=== PATIENT | female | born 1945 | race Caucasian/White ===

== ENCOUNTER 2017-05-15 10:43 | Outpatient (CLI) | payer BC, MEDICARE, OTHER ==
--- NOTE | 2017-05-17 10:10 | XRAY Report ---
LEG LENGTH STUDY: 05/16/2017 CLINICAL INDICATION: Leg length discrepancy, sciatica. FINDINGS: The right leg, measuring from acetabular roof to medial tibial plateau, measures 42.5 cm, and the left leg measures 42.6 cm. The right lower leg, from the medial tibial plateau to the ankle m ortise, measures 36.0 cm, while the left measures 34.4 cm. IMPRESSION: AN 1.5 CM LEG LENGTH DISCREPANCY, PREDOMINANTLY BELOW THE KNEE ON THE LEFT, LEFT SHORTER THAN RIGHT. JOB #: [id number] EXT JOB #:[id number]
== END 2017-05-15 10:44 | disposition home or self-care (01) ==
LOC: DI 10:43
PROVIDERS: ATTEND Podiatrist
DX: M21.70 Unequal limb length (acquired), unspecified site (principal); M54.30 Sciatica, unspecified side
CPT/HCPCS: 77073

== ENCOUNTER 2019-01-28 10:58 | Outpatient (CLI) | payer MEDICARE, OTHER ==
--- NOTE | 2019-01-28 15:13 | XRAY Report ---
Reason: DJD-HIP Procedure Date: 01/28/2019 Accession Number: [id number] / [id number] Procedure: XR - Hip w/Pelvis 2-3V RT CPT Code: FULL RESULT: EXAM: RIGHT HIP RADIOGRAPHY EXAM DATE: 01/28/2019 11:19 AM. CLINICAL HISTORY: Hip pain. COMPARISON: None. TECHNIQUE: 2 views. FINDINGS: Bones: There are operative changes after right total hip arthroplasty. Components appear anatomically aligned. There is no evidence of periprosthetic fracture or delayed complication. No acute fractures elsewhere. Joints: [place] left hip is normally located. SI joints are within expected limits. Soft Tissues: Normal. No soft tissue swelling. Pessary device is in place. IMPRESSION: Right total hip arthroplasty component appears anatomically aligned without evidence of delayed complication. RADIA
== END 2019-01-28 10:59 | disposition home or self-care (01) ==
LOC: DI 10:58
PROVIDERS: ATTEND Physician Assistant Medical
DX: M16.10 Unilateral primary osteoarthritis, unspecified hip (principal); Z96.641 Presence of right artificial hip joint

== ENCOUNTER 2019-02-24 08:00 | Outpatient (CLI) | payer MEDICARE, OTHER ==
[2019-02-24 17:07] LABS: CALCIUM 10.2 mg/dL (8.5-10.3); CREATININE 1.3 mg/dL (0.4-1.0)
== END 2019-02-24 23:59 | disposition home or self-care (01) ==
LOC: LAB 08:00
PROVIDERS: ATTEND Physician Assistant
DX: M54.30 Sciatica, unspecified side (principal); K21.9 Gastro-esophageal reflux disease without esophagitis
CPT/HCPCS: 36415; 80048

== ENCOUNTER 2019-02-26 14:26 | Outpatient (CLI) | payer MEDICARE, OTHER ==
--- NOTE | 2019-02-26 16:33 | CT Report ---
Reason: SCIATICA Procedure Date: 02/26/2019 Accession Number: [id number] / [id number] Procedure: CT - LUMBAR SPINE WO CPT Code: FULL RESULT: EXAM: CT LUMBAR SPINE WITHOUT CONTRAST. EXAM DATE: 02/26/2019 03:10 PM. CLINICAL HISTORY: Sciatica. COMPARISONS: MRI lumbar spine 09/16/2014. TECHNIQUE: Thin-section axial images were acquired of the lumbar spine from T12 to S1 without contrast. Post-processing: Coronal and sagittal reformats. Other: None. In accordance with CT protocol optimization, one or more of the following dose reduction techniques were utilized for this exam: automated exposure control, adjustment of mA and/or KV based on patient size, or use of iterative reconstructive technique. FINDINGS: Alignment: Mild S-shaped scoliosis with 24 degrees convex right component centered at L2-L3 and 17 degrees convex left component at L4-L5, minimally progressed. 4 mm retrolisthesis at L2 on L3, accentuated by osteophytes. 3 mm retrolisthesis at L3 on L4. 5 mm anterolisthesis at L5 on S1. Bones: Five [id number] lumbar vertebral bodies are present. No gross fracture. Hemangioma in the posterior aspect of L1. Endplate sclerosis at multiple levels, asymmetric to the left at L2-L3 and L3-L4 and asymmetric to the right at L4-L5 and L5-S1. No lucency adjacent to the posterior fusion hardware at L4-L5. Intervertebral fusion device at this level. No gross osseous fusion across the disk space. Disk Levels/Facets: Limited evaluation of the soft tissues of the central canal on CT. T11-T12: Partially visualized. Small disk osteophyte complex, asymmetric to the left. Mild facet hypertrophy. No gross central canal stenosis. T12-L1: Minimal disk osteophyte complex, asymmetric to the left. Minimal left neural foramen stenosis. This is similar. L1-L2: Minimal disk osteophyte complex. Mild right and mild to moderate left facet hypertrophy. Minimal central canal stenosis. Mild left neural foramen stenosis. This is similar. L2-L3: Moderate broad-based disk osteophyte complex, extending into the left foramen and far lateral region. Mild facet hypertrophy. Mild central canal stenosis. Mild right and moderate to severe left neural foramen stenosis. This is similar. L3-L4: Small to moderate disk osteophyte complex, asymmetric to the left. Mild right and moderate facet and ligamentum flavum hypertrophy. Mild central canal stenosis. Moderate right and moderate to severe left neural foramen stenosis. This is similar. L4-L5: Small disk osteophyte complex with right foraminal and far lateral component. Moderate right and mild left facet and ligamentum flavum hypertrophy. Mild central canal stenosis. Moderate to severe right and mild left neural foramen stenosis. This is similar. L5-S1: Anterior diskectomy and fusion. Small to moderate residual posterior osteophytes, asymmetric to the right, with extension into the region of the right lateral recess. Right laminectomy and partial facetectomy. Minimal central canal stenosis. Moderate to severe right neural foramen stenosis, slightly decreased. Mild left neural foramen stenosis, similar. Musculature: Mild fatty atrophy posterior paraspinous musculature. Other: Small hiatal hernia. High attenuation ingested materials noted in the stomach. Mild degenerative changes at the sacroiliac joints. IMPRESSION: 1. Intervertebral disk device and posterior fusion hardware at L5-S1 without evidence of complication. 2. Minimal residual central canal stenosis at L5-S1. Residual posterior osteophytes extending to the region of the right lateral recess. Moderate to severe right neural foramen stenosis, slightly decreased. 3. Moderate to severe degenerative disk and mild to moderate degenerative facet changes at remaining levels not significantly changed compared to 2014 given differences in technique. 4. Mild central canal stenosis at L2-L3, L3-L4, and L4-L5. 5. Moderate to severe neural foramen stenosis at L2-L3 on the left and L3-L4 on the left. Moderate stenosis at L3-L4 on the right. 6. Mild to moderate S-shaped scoliosis, minimally progressed. RADIA
--- NOTE | 2019-02-26 16:41 | CT Report ---
Reason: S/P HIP REPLACEMENT, NOW WITH PAIN IN HIP AND LEG. NORMAL XR. Procedure Date: 02/26/2019 Accession Number: [id number] / [id number] Procedure: CT - LOWER EXTREMITY WO - RT CPT Code: FULL RESULT: EXAM: RIGHT HIP CT WITHOUT CONTRAST EXAM DATE: 02/26/2019 03:10 PM. CLINICAL HISTORY: Status post hip replacement. Pain in hip and leg. Sciatica. COMPARISON: Radiographs 01/28/2019. TECHNIQUE: Thin-section axial images were acquired of the hip without contrast. Post-processing: Coronal and sagittal reformats. Other: None. In accordance with CT protocol optimization, one or more of the following dose reduction techniques were utilized for this exam: automated exposure control, adjustment of mA and/or KV based on patient size, or use of iterative reconstructive technique. FINDINGS: Bones: Streak artifact from right hip prosthesis moderately limits evaluation of that region. Cystic changes at the anterior superior aspect right acetabulum, likely due to underlying degenerative changes. Subtle lucency adjacent to the femoral stem measuring up to 2 mm at the proximal and lateral aspect and 1.5 mm circumferentially at the mid to distal aspect. No discrete displaced fracture visualized. Evaluation for nondisplaced fracture limited on CT. Posterior fusion hardware partially visualized at L5-S1. Please see dedicated CT lumbar spine performed on the same day for further details. Joints: Anatomic alignment of right hip prosthesis. Femoral component is symmetrically located within the acetabular component. No large joint effusion visualized. Mild degenerative changes at the sacroiliac joints and left hip. No appreciable effusion at the left hip. Musculature: Mild fatty atrophy posterior paraspinous musculature. Limited evaluation for muscle edema on CT. Other: Multiple sigmoid diverticula. No gross free fluid. Pessary device noted. IMPRESSION: 1. No evidence of acute osseous normality. 2. Anatomic alignment right hip prosthesis. 3. Subtle lucency adjacent to the femoral component right hip prosthesis, most prominent proximally and laterally. This may be postsurgical. Early loosening not excluded. 4. Degenerative changes in the remainder of the bony pelvis. 5. Degenerative changes and postsurgical changes partially visualized lower lumbar spine. RADIA
== END 2019-02-26 14:27 | disposition home or self-care (01) ==
LOC: DI 14:26
PROVIDERS: ATTEND Family Medicine
DX: M47.9 Spondylosis, unspecified (principal); M51.36 Other intervertebral disc degeneration, lumbar region; M48.061 Spinal stenosis, lumbar region without neurogenic claudication; Z98.1 Arthrodesis status; M41.86 Other forms of scoliosis, lumbar region; M43.16 Spondylolisthesis, lumbar region; M51.34 Other intervertebral disc degeneration, thoracic region; M16.12 Unilateral primary osteoarthritis, left hip; M47.898 Other spondylosis, sacral and sacrococcygeal region; Z96.641 Presence of right artificial hip joint
CPT/HCPCS: 72131

== ENCOUNTER 2019-09-03 11:37 | Outpatient (CLI) | payer MEDICARE, OTHER ==
--- NOTE | 2019-09-04 07:24 | Ultrasound Report ---
Reason: DYSPHAGIA Procedure Date: 09/03/2019 Accession Number: [id number] / [id number] Procedure: US - Head or Neck Soft Tissue CPT Code: Final Report FULL RESULT: EXAM: THYROID ULTRASOUND EXAM DATE: 09/03/2019 11:30 AM. CLINICAL HISTORY: DYSPHAGIA. COMPARISON: None. TECHNIQUE: Real time sonographic imaging of the thyroid was performed by the vacuum drum drier operator. Multiple sales representative aircraft static images were saved for review. FINDINGS: THYROID GLAND: Right Lobe: 4.3 x 1.3 x 1.7 cm, volume 4.9 cc. Normal background echotexture. Right Lobe Nodules: 1. Upper pole 1 x 0.7 x 0.7 cm spongiform noncalcified nodule 2. Mid pole posterior hypoechoic 0.8 x 0.6 x 0.8 cm noncalcified nodule 3. Lower pole cystic with eccentric solid component 1.5 x 0.9 x 1.3 cm noncalcified nodule 4. Upper pole partially cystic 0.4 x 0.4 x 0.4 cm noncalcified nodule Left Lobe: 3.8 x 1.5 x 1.3 cm, volume 3.3 cc. Normal background echotexture. Left Lobe Nodules: 1. Upper pole 0.9 x 0.8 x 0.8 cm nodule with microcalcifications 2. Midpole 0.4 x 0.3 x 0.4 cm hypoechoic nodule with possible microcalcifications 3. Lower pole 0.5 x 0.3 x 0.7 cm heterogeneous nodule Isthmus: 0.1 cm AP. Isthmic Nodules: None. LYMPH NODES: No adenopathy demonstrated in the central or lateral compartment. OTHER: None. IMPRESSION: 1. Right lower pole cystic solid 1.5 x 0.9 x 1.3 cm nodule meets criteria for biopsy. 2. Left upper and midpole nodule with calcifications. Follow-up 6-12 months Management recommendations are based on 2015 [place] [employer] Management Guidelines for Adult Patients with Thyroid Nodules and Differentiated Thyroid Cancer. RADIA
== END 2019-09-03 11:38 | disposition home or self-care (01) ==
LOC: DI 11:37
PROVIDERS: ATTEND Physician Assistant
DX: E04.2 Nontoxic multinodular goiter (principal); R47.02 Dysphasia
CPT/HCPCS: 76536

== ENCOUNTER 2019-09-16 09:14 | Day surgery (SDC) | payer MEDICARE, OTHER ==
[2019-09-16] MEDS ORDERED: LACTATED RINGERS 1,000 ML IV ONE (09:51)
[2019-09-16] MEDS ORDERED: LIDO GARGLE 30 ML BOTTLE ONE (10:13)
[2019-09-16] MEDS ORDERED: fentaNYL 100 MCG/2 ML VIAL IVP ONE (10:24)
[2019-09-16] MEDS ORDERED: MIDAZOLAM 2 MG/2 ML VIAL IVP ONE (10:24)
[2019-09-16] MEDS ORDERED: LIDO GARGLE 30 ML BOTTLE PO ONE (10:29)
[2019-09-16 11:17] VITALS: BP 101/79
== END 2019-09-16 09:15 | disposition home or self-care (01) ==
LOC: SDS 09:14
PROVIDERS: ATTEND Surgery
PROC: 0DB68ZX Excision of Stomach, Via Natural or Artificial Opening Endoscopic, Diagnostic (ICD-10-PCS; 2019-09-16)
PROC: 0DB48ZX Excision of Esophagogastric Junction, Via Natural or Artificial Opening Endoscopic, Diagnostic (ICD-10-PCS; 2019-09-16)
PROC: 0DB98ZX Excision of Duodenum, Via Natural or Artificial Opening Endoscopic, Diagnostic (ICD-10-PCS; principal; 2019-09-16 10:30)
DX: K21.9 Gastro-esophageal reflux disease without esophagitis (principal); R13.10 Dysphagia, unspecified; K44.9 Diaphragmatic hernia without obstruction or gangrene
CPT/HCPCS: 43239; A9270; J7120

== ENCOUNTER 2019-09-29 11:56 | Outpatient (CLI) | payer MEDICARE, OTHER ==
[~2019-09-29 11:56] MED LIST: BUFFERED LIDOCAINE 10 ML SYRINGE ONE
--- NOTE | 2019-09-30 11:10 | Ultrasound Report ---
Reason: RT THYROID NODULE Procedure Date: 09/29/2019 Accession Number: [id number] / [id number] Procedure: US - Head or Neck Soft Tissue CPT Code: Final Report FULL RESULT: EXAM: THYROID ULTRASOUND EXAM DATE: 09/29/2019 01:27 PM. CLINICAL HISTORY: Thyroid nodule. COMPARISON: 09/03/2019, 01/19/2016, 04/13/2011. TECHNIQUE: Real time sonographic imaging of the thyroid was performed by the president and cmo. Multiple direct sales representative static images were saved for review. FINDINGS IMPRESSION: The previously reported lower pole complex cystic-solid nodule is not reproduced. 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 The immediate surrounding glandular tissue is heterogeneously hypoechoic without a discrete solid mass. The sonographic appearance is similar to prior exams from 2015 and 2010 - given technical variation. Targeted FNA deferred at this time. Recommend 6 month follow-up thyroid ultrasound to confirm further stability. RADIA
== END 2019-09-29 11:57 | disposition home or self-care (01) ==
LOC: DI 11:56
PROVIDERS: ATTEND Physician Assistant
DX: E04.1 Nontoxic single thyroid nodule (principal)
CPT/HCPCS: 76536

== ENCOUNTER 2019-11-04 10:14 | Outpatient (CLI) | payer MEDICARE, OTHER ==
[2019-11-04] MEDS ORDERED: BARIUM SULFATE 176 GM BOTTLE PO ONE (11:01)
[2019-11-04] MEDS ORDERED: SIMETHICONE/SOD BICARB/CIT AC 1 EACH PACKET PO ONE (11:01)
[2019-11-04] MEDS ORDERED: BARIUM SULFATE 148 GM POWDER PO ONE (11:01)
[2019-11-04] MEDS ORDERED: BARIUM SULFATE 700 MG TABLET PO ONE (11:01)
--- NOTE | 2019-11-04 15:18 | XRAY Report ---
Reason: DYSPHAGIA, Procedure Date: 11/04/2019 Accession Number: [id number] / [id number] Procedure: FL - Esophogram CPT Code: Final Report FULL RESULT: EXAM: ESOPHAGRAM EXAM DATE: 11/04/2019 11:00 AM. CLINICAL HISTORY: DYSPHAGIA. COMPARISON: None. TECHNIQUE: Standard fluoroscopic-guided esophagram performed using thin and thick barium. Fluoroscopy Time: 2 minutes 29 seconds. Images: 30 FINDINGS: The swallowing mechanism was initiated normally the column barium flows to the esophagus into the stomach without delay. The mucosal surface is within normal limits. No polyps, mass lesions nor strictures. No evidence for hiatal hernia. There is no reflux documented during this examination. IMPRESSION: Normal esophagram. Reference modified barium swallow, performed same day. RADIA
--- NOTE | 2019-11-04 15:19 | XRAY Report ---
Reason: REFLUX, DYSPHAGIA Procedure Date: 11/04/2019 Accession Number: [id number] / [id number] Procedure: FL - Modified Barium Swallow W/SP CPT Code: Final Report FULL RESULT: EXAM: MODIFIED BARIUM SWALLOW EXAM DATE: 11/04/2019 11:18 AM. CLINICAL HISTORY: REFLUX, DYSPHAGIA. COMPARISON: ESOPHOGRAM 11/04/2019 10:36 AM. TECHNIQUE: Under the direction of speech pathology, patient swallowed various consistencies of barium under lateral fluoroscopic observation of the neck. Fluoroscopy Time: 52 seconds. Number of Images: 77 (video tape and (. FINDINGS: Swallowing Mechanism: Normal oral phase and swallowing reflex. Airway Protection: Normal epiglottic motion. No episodes of tracheal penetration or aspiration with all consistencies of barium. Pharynx: Normal. No significant vallecular or piriform sinus contrast pooling. IMPRESSION: Normal modified barium swallow. No aspiration identified. Reference separate report issued by the speech pathologist. RADIA
== END 2019-11-04 10:15 | disposition home or self-care (01) ==
LOC: DI 10:14
PROVIDERS: ATTEND Otolaryngology
DX: R13.19 Other dysphagia (principal); K21.0 Gastro-esophageal reflux disease with esophagitis
CPT/HCPCS: 74220; 92611; A9270; 74230

== ENCOUNTER 2020-05-16 11:17 | Outpatient (CLI) | payer MEDICARE, OTHER | END 2020-05-16 23:59 | disposition home or self-care (01) | LOC: LAB.WCP 11:17 | PROVIDERS: ATTEND Physician Assistant Medical | DX: E04.1 Nontoxic single thyroid nodule (principal) | CPT/HCPCS: 36415; 84443 ==

== ENCOUNTER 2020-10-14 14:48 | Outpatient (CLI) | payer MEDICARE, OTHER ==
--- NOTE | 2020-10-14 16:57 | Ultrasound Report ---
PROCEDURE: Pelvic Limited or F/U INDICATIONS: LEFT INGUINAL HERNIA TECHNIQUE: Real-time transabdominal scanning was performed of the pelvis, with image documentation. COMPARISON: None. FINDINGS: No visualized hernia. No focal fluid collections or mass lesion. IMPRESSION: No visualized hernia. Reviewed by: Katlyn Beckford MD on 10/14/2020 4:56 PM PST Approved by: Katlyn Beckford MD on 10/14/2020 4:56 PM PST Station ID: [id number]
== END 2020-10-14 14:49 | disposition home or self-care (01) ==
LOC: DI 14:48
PROVIDERS: ATTEND Nurse Practitioner Family
DX: K40.90 Unilateral inguinal hernia, without obstruction or gangrene, not specified as recurrent (principal)

== ENCOUNTER 2020-10-24 08:18 | Outpatient (CLI) | payer MEDICARE, OTHER ==
[2020-10-24 08:44] LABS: BASOPHILS # (AUTO) 0.1 10^3/uL (0.0-0.1); BASOPHILS % (AUTO) 0.6 %; EOSINOPHILS # (AUTO) 0.1 10^3/uL (0.0-0.7); EOSINOPHILS % (AUTO) 0.8 %; HGB - HEMOGLOBIN 16.2 g/dL (12.0-16.0); LYMPHOCYTES # (AUTO) 4.2 10^3/uL (1.5-3.5); LYMPHOCYTES % (AUTO) 43.5 %; MEAN CORPUSCULAR HEMOGLOBIN 29.3 pg (27.0-31.0); MEAN CORPUSCULAR HGB CONC 32.5 g/dL (32.0-36.0); MEAN CORPUSCULAR VOLUME 90.4 fL (81.0-99.0); MEAN PLATELET VOLUME 10.3 fL (7.9-10.8); MONOCYTES # (AUTO) 0.8 10^3/uL (0.0-1.0); MONOCYTES % (AUTO) 8.1 %; NEUTROPHILS # (AUTO) 4.5 10^3/uL (1.5-6.6); NEUTROPHILS % (AUTO) 46.7 %; PLT - PLATELET COUNT 262 10^3/uL (130-450); RED BLOOD COUNT 5.52 10^6/uL (4.20-5.40); RED CELL DISTRIBUTION WIDTH 13.9 % (12.0-15.0); WHITE BLOOD COUNT 9.6 x10^3/uL (4.8-10.8)
[2020-10-24 08:58] LABS: ALBUMIN 4.2 g/dL (3.2-5.5); ALBUMIN/GLOBULIN RATIO 1.2 (1.0-2.2); BILIRUBIN,TOTAL 0.6 mg/dL (0.2-1.0); CALCIUM 9.8 mg/dL (8.5-10.3); CREATININE 0.9 mg/dL (0.4-1.0); TOTAL PROTEIN 7.8 g/dL (6.7-8.2)
[2020-10-24 10:00] LABS: FREE T4 (FREE THYROXINE) 1.26 ng/dL (0.58-1.64)
== END 2020-10-24 08:19 | disposition home or self-care (01) ==
LOC: LAB 08:18
PROVIDERS: ATTEND Physician Assistant Medical
DX: K44.9 Diaphragmatic hernia without obstruction or gangrene (principal); E04.1 Nontoxic single thyroid nodule; K21.9 Gastro-esophageal reflux disease without esophagitis
CPT/HCPCS: 36415; 80053; 84439; 84443; 85025

== ENCOUNTER 2020-11-10 17:31 | Outpatient (CLI) | payer MEDICARE, OTHER ==
--- NOTE | 2020-11-11 10:58 | XRAY Report ---
* REVISED: THIS REPORT WAS ORIGINALLY SIGNED ON 11/11/2020 @ 10:57 AM. THE EXAM CODE IS REVISED FROM RIGHT TO LEFT ON 11/27/2020. * PROCEDURE: Hip w/Pelvis 1V RT INDICATIONS: PIRFORMIS SYNDROME TECHNIQUE: AP pelvis with lateral view(s) of the bilateral hip(s). COMPARISON: None. FINDINGS: No fracture. Moderate left hip joint degeneration. Lumbar spondylosis and partially visualized lateral curvature of the spine. Expected alignment of right hip arthroplasty. Soft tissues: The visualized bowel gas pattern is normal. No suspicious soft tissue calcifications. IMPRESSION: Moderate left hip joint degeneration. Reviewed by: Mark Viera MD on 11/11/2020 10:57 AM PST Approved by: Mark Viera MD on 11/11/2020 10:57 AM PST Station ID: [id number]
== END 2020-11-10 17:32 | disposition home or self-care (01) ==
LOC: DI.N 17:31
PROVIDERS: ATTEND Physician Assistant Medical
DX: M16.12 Unilateral primary osteoarthritis, left hip (principal)

== ENCOUNTER 2020-12-05 11:28 | Outpatient (CLI) | payer MEDICARE, OTHER | END 2020-12-05 11:29 | disposition home or self-care (01) | LOC: LAB 11:28 | PROVIDERS: ATTEND Physician Assistant Medical | DX: E03.9 Hypothyroidism, unspecified (principal) | CPT/HCPCS: 36415; 84443 ==

== ENCOUNTER 2021-08-04 11:36 | Outpatient (CLI) | payer MEDICARE, OTHER ==
--- NOTE | 2021-08-04 17:47 | XRAY Report ---
PROCEDURE: Abdomen 3 View X-Ray INDICATIONS: ABD PAIN TECHNIQUE: 1 view of the abdomen were acquired. COMPARISON: Correlation is made with lumbar spine CT, 02/26/2019 FINDINGS: Surgical changes and devices: L5-S1 fixation hardware is seen. Right hip arthroplasty hardware is als o seen. Bowel: No pneumoperitoneum. The bowel gas pattern is normal. Soft tissues: No masses; visualized solid organ contours appear normal in size. No suspicious abdom inal calcifications. Bones: No suspicious bony abnormalities. Mild to moderate dextroconvex thoracolumbar scoliosis is s een. Age-appropriate degenerative changes are seen. Moderate to severe left hip degenerative change can be seen. IMPRESSION: Nonobstructive bowel gas pattern. Clear lungs. Postoperative and degenerative changes are seen, with moderate to severe left hip degenerative change . Reviewed by: Gentry Kidd MD on 08/04/2021 4:46 PM AKDT Approved by: Gentry Kidd MD on 08/04/2021 4:46 PM AKDT Station ID: [id number]
== END 2021-08-04 11:37 ==
LOC: DI.N 11:36
PROVIDERS: ATTEND Family Medicine
DX: R10.9 Unspecified abdominal pain (principal); M16.12 Unilateral primary osteoarthritis, left hip; Z96.641 Presence of right artificial hip joint

== ENCOUNTER 2021-08-30 11:30 | Outpatient (CLI) | payer MEDICARE, OTHER ==
--- NOTE | 2021-08-31 12:41 | XRAY Report ---
PROCEDURE: Sinus Moore View INDICATIONS: SINUSITIS TECHNIQUE: 1 views of the sinuses were acquired. COMPARISON: None FINDINGS: Sinuses: The visualized sinuses demonstrate no air-fluid levels. Increased opacification noted in th e left maxillary sinus. 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 The visualized mastoids also appear clear. Bones: No suspicious bony lesions. Nasal septum is midline. IMPRESSION: Left maxillary sinus increased opacification concerning for sinusitis. Recommend CT scan of the sinus es were characterization of clinically indicated. Reviewed by: Abby Vanessa MD, PhD on 08/31/2021 11:40 AM MATHEW Approved by: Abby Vanessa MD, PhD on 08/31/2021 11:40 AM MATHEW Station ID: [id number]
== END 2021-08-30 11:31 | disposition home or self-care (01) ==
LOC: DI.N 11:30
PROVIDERS: ATTEND Physician Assistant Medical
DX: J01.90 Acute sinusitis, unspecified (principal)

== ENCOUNTER 2021-09-06 15:12 | Outpatient (CLI) | payer MEDICARE, OTHER ==
--- NOTE | 2021-09-06 16:47 | Ultrasound Report ---
PROCEDURE: Pelvic w/Transvaginal INDICATIONS: R10.9 ABD PAIN TECHNIQUE: Real-time scanning was performed of the pelvic organs, with image documentation. Additional endovagi nal scanning was necessary due to incomplete visualization of the adnexal and endometrial structures by transabdominal scanning. COMPARISON: None. FINDINGS: No pathologic free abdominal or pelvic fluid. Uterus: Surgically absent Ovaries: Right adnexal cyst measuring 5 mm, technically nonspecific. Left ovary not well visualized sonographically. It may be present measuring 0.7 x 0.6 x 0.4 cm. IMPRESSION: Both ovaries not well sonographically identified. Possible right adnexal cyst however too small to ch aracterize. No gross adnexal mass. Status post hysterectomy Reviewed by: Mark Viera MD on 09/06/2021 4:46 PM PST Approved by: Mark Viera MD on 09/06/2021 4:46 PM PST Station ID: [id number]
== END 2021-09-06 15:13 | disposition home or self-care (01) ==
LOC: DI 15:12
PROVIDERS: ATTEND Physician Assistant Medical
DX: R10.9 Unspecified abdominal pain (principal); Z90.710 Acquired absence of both cervix and uterus

== ENCOUNTER 2021-09-19 12:25 | Outpatient (CLI) | payer MEDICARE, OTHER ==
[2021-09-19 13:04] LABS: CREATININE 0.9 mg/dL (0.4-1.0)
== END 2021-09-19 12:26 | disposition home or self-care (01) ==
LOC: LAB 12:25
PROVIDERS: ATTEND Nurse Practitioner Family
DX: R10.9 Unspecified abdominal pain (principal)
CPT/HCPCS: 36415; 82565

== ENCOUNTER 2021-09-20 09:58 | Outpatient (CLI) | payer MEDICARE, OTHER ==
[2021-09-20] MEDS ORDERED: IOVERSOL 320 50 ML VIAL ONE (10:08)
[2021-09-20] MEDS ORDERED: IOVERSOL 320 100 ML VIAL IVP ONE ×2 (10:08→18:36)
--- NOTE | 2021-09-20 16:06 | CT Report ---
PROCEDURE: Abdomen/Pelvis W INDICATIONS: Abdominal pain CONTRAST: IV CONTRAST: Optiray 320 ml: 100 PO CONTRAST: Optiray 320 ml50 TECHNIQUE: After the administration of oral and intravenous contrast, 5 mm thick sections acquired from the diap hragms to the symphysis. 5 mm thick coronal and sagittal reformats were acquired. For radiation dos e reduction, the following was used: automated exposure control, adjustment of mA and/or kV accordin g to patient size. COMPARISON: February 02, 2011. FINDINGS: Inferior chest: No focal consolidation, pleural effusion, or pneumothorax. No cardiomegaly or perica rdial effusion. Gallbladder: The gallbladder is distended with a smooth thin wall. Biliary tree: The common bile duct measures up to 5.2 mm. Liver: Normal enhancement and contour. Focal fatty infiltration adjacent to the falciform ligament. Spleen: Normal enhancement, size and morphology is seen. Pancreas: No contour deforming mass or inflammatory change. Adrenals: Normal size without masses. Kidneys/ureters: Normal size and morphology. No solid masses or hydronephrosis. Vasculature: No evidence of aneurysm or other significant vascular pathology. Tortuous aorta. Lymphatic system: No pathologic enlargement by size criteria. GI/mesentery: Trace hiatal hernia. No evidence of intestinal obstruction. Sigmoid diverticulosis. Nor mal appearance of the appendix. Peritoneum/Retroperitoneum: No free intraperitoneal gas or large collection. Urinary bladder: The urinary bladder is distended with a smooth thin wall. Pelvic organs: No significant abnormality. The uterus appears to be surgically absent. A pessary is n oted. Bones/soft tissues: No acute abnormality. Dextrocurvature of the lumbar spine with posterior elements fixation at L5-S1. Right hip arthroplasty partially imaged, which causes beam hardening artifact. Small fat-containing periumbilical hernia. IMPRESSION: 1.No significant abnormality. Reviewed by: Marito Mayberry MD on 09/20/2021 4:05 PM [facility] Approved by: Marito Mayberry MD on 09/20/2021 4:05 PM PST Station ID: [id number]
[2021-09-20] MEDS ORDERED: IOVERSOL 320 50 ML VIAL PO ONE (18:35)
== END 2021-09-20 09:59 | disposition home or self-care (01) ==
LOC: DI 09:58
PROVIDERS: ATTEND Nurse Practitioner Family
DX: R10.9 Unspecified abdominal pain (principal)
CPT/HCPCS: 74177; Q9967

== ENCOUNTER 2022-01-01 12:09 | Outpatient (CLI) | payer MEDICARE, OTHER | END 2022-01-01 12:10 | disposition home or self-care (01) | LOC: LAB 12:09 | PROVIDERS: ATTEND Nurse Practitioner | DX: E60 Dietary zinc deficiency (principal); L65.9 Nonscarring hair loss, unspecified; E03.9 Hypothyroidism, unspecified | CPT/HCPCS: 36415; 84436; 84480; 84630 ==

== ENCOUNTER 2022-09-26 10:14 | Outpatient (CLI) | payer MEDICARE, OTHER ==
[2022-09-26 10:45] LABS: BASOPHILS # (AUTO) 0.1 10^3/uL (0.0-0.1); BASOPHILS % (AUTO) 1.1 %; EOSINOPHILS # (AUTO) 0.1 10^3/uL (0.0-0.7); EOSINOPHILS % (AUTO) 1.3 %; HCT - HEMATOCRIT 48.2 % (37.0-47.0); HGB - HEMOGLOBIN 15.8 g/dL (12.0-16.0); LYMPHOCYTES # (AUTO) 1.7 10^3/uL (1.5-3.5); LYMPHOCYTES % (AUTO) 30.4 %; MEAN CORPUSCULAR HEMOGLOBIN 29.5 pg (27.0-31.0); MEAN CORPUSCULAR HGB CONC 32.8 g/dL (32.0-36.0); MEAN CORPUSCULAR VOLUME 89.9 fL (81.0-99.0); MEAN PLATELET VOLUME 10.2 fL (7.9-10.8); MONOCYTES # (AUTO) 0.4 10^3/uL (0.0-1.0); MONOCYTES % (AUTO) 6.4 %; NEUTROPHILS # (AUTO) 3.4 10^3/uL (1.5-6.6); NEUTROPHILS % (AUTO) 60.6 %; PLT - PLATELET COUNT 201 10^3/uL (130-450); RED BLOOD COUNT 5.36 10^6/uL (4.20-5.40); RED CELL DISTRIBUTION WIDTH 13.2 % (12.0-15.0); WHITE BLOOD COUNT 5.6 x10^3/uL (4.8-10.8)
[2022-09-26 10:55] LABS: ALBUMIN 4.4 g/dL (3.2-5.5); ALBUMIN/GLOBULIN RATIO 1.3 (1.0-2.2); BILIRUBIN,TOTAL 0.9 mg/dL (0.2-1.0); POTASSIUM 4.4 mmol/L (3.5-5.0); TOTAL PROTEIN 7.9 g/dL (6.7-8.2)
[2022-09-26 11:12] LABS: THYROID STIMULATING HORMONE 1.95 uIU/mL (0.34-5.60)
== END 2022-09-26 10:15 | disposition home or self-care (01) ==
LOC: LAB 10:14
PROVIDERS: ATTEND Physician Assistant Medical
DX: E83.52 Hypercalcemia (principal); E03.9 Hypothyroidism, unspecified; K21.9 Gastro-esophageal reflux disease without esophagitis
CPT/HCPCS: 36415; 80053; 84443; 85025

== ENCOUNTER 2023-04-01 08:31 | Outpatient (CLI) | payer MEDICARE, OTHER ==
[2023-04-01 12:49] LABS: ALBUMIN 4.1 g/dL (3.2-5.5); ALBUMIN/GLOBULIN RATIO 1.2 (1.0-2.2); BILIRUBIN,TOTAL 0.8 mg/dL (0.2-1.0); CALCIUM 10.2 mg/dL (8.5-10.3); POTASSIUM 4.7 mmol/L (3.5-5.0); TOTAL PROTEIN 7.4 g/dL (6.7-8.2)
[2023-04-01 14:16] LABS: ESTIMATED AVERAGE GLUCOSE 117 mg/dL (70-100); HEMOGLOBIN A1c% 5.7 % (4.27-6.07)
== END 2023-04-01 08:32 | disposition home or self-care (01) ==
LOC: LAB.N 08:31
PROVIDERS: ATTEND Physician Assistant Medical
DX: R73.9 Hyperglycemia, unspecified (principal)
CPT/HCPCS: 36415; 80053; 83036

== ENCOUNTER 2023-09-30 08:32 | Outpatient (CLI) | payer MEDICARE, OTHER ==
[2023-09-30 08:44] LABS: BASOPHILS # (AUTO) 0.1 10^3/uL (0.0-0.1); BASOPHILS % (AUTO) 0.9 %; EOSINOPHILS # (AUTO) 0.1 10^3/uL (0.0-0.7); EOSINOPHILS % (AUTO) 1.2 %; HCT - HEMATOCRIT 45.9 % (37.0-47.0); HGB - HEMOGLOBIN 14.5 g/dL (12.0-16.0); LYMPHOCYTES # (AUTO) 1.5 10^3/uL (1.5-3.5); LYMPHOCYTES % (AUTO) 19.6 %; MEAN CORPUSCULAR HEMOGLOBIN 27.9 pg (27.0-31.0); MEAN CORPUSCULAR HGB CONC 31.6 g/dL (32.0-36.0); MEAN CORPUSCULAR VOLUME 88.4 fL (81.0-99.0); MEAN PLATELET VOLUME 9.7 fL (7.9-10.8); MONOCYTES # (AUTO) 0.6 10^3/uL (0.0-1.0); MONOCYTES % (AUTO) 7.4 %; NEUTROPHILS # (AUTO) 5.5 10^3/uL (1.5-6.6); NEUTROPHILS % (AUTO) 70.8 %; PLT - PLATELET COUNT 324 10^3/uL (130-450); RED BLOOD COUNT 5.19 10^6/uL (4.20-5.40); RED CELL DISTRIBUTION WIDTH 12.8 % (12.0-15.0); WHITE BLOOD COUNT 7.8 x10^3/uL (4.8-10.8)
[2023-09-30 08:58] LABS: ALBUMIN 4.1 g/dL (3.2-5.5); ALBUMIN/GLOBULIN RATIO 1.2 (1.0-2.2); BILIRUBIN,TOTAL 0.6 mg/dL (0.2-1.0); CREATININE 0.9 mg/dL (0.6-1.3); POTASSIUM 4.2 mmol/L (3.5-4.5); TOTAL PROTEIN 7.5 g/dL (6.4-8.9)
== END 2023-09-30 08:33 | disposition home or self-care (01) ==
LOC: LAB 08:32
PROVIDERS: ATTEND Physician Assistant Medical
DX: K21.9 Gastro-esophageal reflux disease without esophagitis (principal); R73.9 Hyperglycemia, unspecified
CPT/HCPCS: 36415; 80053; 85025

== ENCOUNTER 2024-03-19 08:54 | Outpatient (CLI) | payer MEDICARE, OTHER ==
[2024-03-19 09:08] LABS: BASOPHILS # (AUTO) 0.1 10^3/uL (0.0-0.1); BASOPHILS % (AUTO) 0.5 %; EOSINOPHILS % (AUTO) 0.1 %; HCT - HEMATOCRIT 44.3 % (37.0-47.0); HGB - HEMOGLOBIN 13.6 g/dL (12.0-16.0); LYMPHOCYTES # (AUTO) 1.3 10^3/uL (1.5-3.5); MEAN CORPUSCULAR HEMOGLOBIN 25.8 pg (27.0-31.0); MEAN CORPUSCULAR HGB CONC 30.7 g/dL (32.0-36.0); MEAN CORPUSCULAR VOLUME 83.9 fL (81.0-99.0); MEAN PLATELET VOLUME 9.8 fL (7.9-10.8); MONOCYTES # (AUTO) 0.4 10^3/uL (0.0-1.0); MONOCYTES % (AUTO) 3.8 %; NEUTROPHILS # (AUTO) 8.3 10^3/uL (1.5-6.6); NEUTROPHILS % (AUTO) 82.4 %; PLT - PLATELET COUNT 369 10^3/uL (130-450); RED BLOOD COUNT 5.28 10^6/uL (4.20-5.40); RED CELL DISTRIBUTION WIDTH 14.9 % (12.0-15.0); WHITE BLOOD COUNT 10.1 x10^3/uL (4.8-10.8)
[2024-03-19 09:28] LABS: ALBUMIN 4.1 g/dL (3.2-5.5); BILIRUBIN,TOTAL 0.4 mg/dL (0.2-1.0); CALCIUM 10.5 mg/dL (8.5-10.3); CREATININE 0.8 mg/dL (0.6-1.3); POTASSIUM 4.1 mmol/L (3.5-4.5); TOTAL PROTEIN 8.1 g/dL (6.4-8.9)
== END 2024-03-19 08:55 | disposition home or self-care (01) ==
LOC: LAB 08:54
PROVIDERS: ATTEND Physician Assistant Medical
DX: R73.9 Hyperglycemia, unspecified (principal); K21.9 Gastro-esophageal reflux disease without esophagitis
CPT/HCPCS: 36415; 80053; 85025

== ENCOUNTER 2024-04-01 10:14 | Outpatient (CLI) | payer MEDICARE, OTHER ==
[2024-04-01 11:17] LABS: RHEUMATOID FACTOR NEGATIVE (Negative)
== END 2024-04-01 10:15 | disposition home or self-care (01) ==
LOC: LAB 10:14
PROVIDERS: ATTEND Physician Assistant Medical
DX: M25.50 Pain in unspecified joint (principal)
CPT/HCPCS: 36415; 85651; 86038; 86140; 86200; 86225; 86430

== ENCOUNTER 2024-04-04 07:44 | Outpatient (CLI) | payer MEDICARE, OTHER ==
[~2024-04-04 07:44] MED LIST changes: -BUFFERED LIDOCAINE 10 ML SYRINGE ONE; +GADOTERATE MEGLUMINE 10 MMOL/20 ML VIAL ONE
[2024-04-04] MEDS ORDERED: DIATRIZOATE MEGLU/DIATRIZO SOD 30 ML BOTTLE PO ONE (07:48)
[2024-04-04] MEDS ORDERED: iohexoL-300 100 ML VIAL ONE (07:48)
[2024-04-04] MEDS: GADOTERATE MEGLUMINE 10 MMOL/20 ML VIAL IVP ONE (08:55)
--- NOTE | 2024-04-05 16:43 | CT Report ---
PROCEDURE: Abdomen/Pelvis W INDICATIONS: ABNORMAL WEIGHT LOSS CONTRAST: 100ml Omni 300 TECHNIQUE: After the administration of intravenous contrast, a CT scan of the abdomen and pelvis was performed. Images were recorded and evaluated at appropriate window settings. Reformats: coronal and sagittal. F or radiation dose reduction, the following was used: automated exposure control, adjustment of mA and /or kV according to patient size. COMPARISON: CT abdomen and pelvis on September 20, 2021. FINDINGS: Image quality: Diagnostic. Please see same-day CT chest. Liver: No solid mass. Focal fatty infiltration adjacent to the falciform ligament. Gallbladder: No radiopaque stones or wall thickening. Biliary tree: No intrahepatic or extrahepatic dilation, accounting for age. Spleen: No splenomegaly. Pancreas: No pancreatic ductal dilation. Adrenals: No adrenal nodule. Kidneys and ureters: No hydronephrosis. No renal cystic lesion which requires follow up. No solid mas s. Stomach, bowel and peritoneum: Moderate gastric distention. Small and large bowel is normal in calibe r, without obstruction. No abnormal wall thickening. No pathologic free fluid. Marked stool burden th roughout the colon. Lymph nodes: No central or retroperitoneal adenopathy. Vessels: No infrarenal aortic aneurysm. Patent portal vein. Abdominal aorta is tortuous. PELVIS Reproductive organs: Hysterectomy. Pessary. Bladder: No abnormal wall thickening, accounting for underdistention. Pelvic lymph nodes: No pelvic adenopathy by size criteria. Bones: No aggressive osseous abnormality. Right total hip arthroplasty is partially visualized. Poste rior fusion hardware from L5 to S1 with interbody disc spacer. Moderate to marked degenerative change s of the spine with dextroconvex curvature centered at L2. Other: No significant ventral or inguinal hernia. IMPRESSION: 1.No acute pathology in the abdomen or pelvis. 2.Moderate distention of the stomach which may be secondary to dysmotility. 3.Marked stool burden throughout the colon compatible with constipation. Consider a colonoscopy for f urther evaluation. Reviewed by: Rhiannon Lyles MD on 04/05/2024 4:42 PM PDT Approved by: Rhiannon Lyles MD on 04/05/2024 4:42 PM PDT Station ID: [id number]
--- NOTE | 2024-04-05 16:46 | CT Report ---
PROCEDURE: Chest W INDICATIONS: ABNORMAL WEIGHT LOSS CONTRAST: 100ml Omni 300 TECHNIQUE: After the administration of intravenous contrast, a CT scan of the chest was performed. Images were recorded and evaluated at appropriate window settings. Reformats: axial MIP of the chest, coronal and sagittal. For radiation dose reduction, the following was used: automated exposure control, adjustme nt of mA and/or kV according to patient size. COMPARISON: Chest radiograph on August 03, 2016. FINDINGS: Image quality: Diagnostic. Chest wall and lower neck: Right thyroid nodule measuring 0.7 cm. No thyroid nodule which requires so nographic follow up. No breast mass. No axillary or supraclavicular adenopathy by size. Lungs and pleura: No consolidation. No pleural effusions. No pneumothorax. No suspicious pulmonary n odules which require follow up. Subcentimeter calcified granuloma in the right upper lobe. Dependent atelectasis. Patent central airways. Mediastinum: Heart size is normal. No pericardial effusion. No coronary vessel calcifications. No lar ge vessel abnormality. No filling defects in the central pulmonary vasculature. No mediastinal adenop athy by size criteria. Small hiatal hernia. Bones: No aggressive osseous abnormality. No acute fractures. Moderate to severe multilevel degenerat alyssia changes of the spine. Upper Abdomen: Please see same day CT abdomen and pelvis. IMPRESSION: 1.No acute or significant pathology in the chest. 2.Please see same day CT abdomen and pelvis for additional findings. Reviewed by: Rhiannon Lyles MD on 04/05/2024 4:44 PM PDT Approved by: Rhiannon Lyles MD on 04/05/2024 4:44 PM PDT Station ID: [id number]
--- NOTE | 2024-04-06 17:52 | MRI Report ---
PROCEDURE: Brain W/WO INDICATIONS: TREMORS CONTRAST: CLARISCAN 7.2 ML TECHNIQUE: Noncontrast axial T1 spin echo, axial T2 fast spin echo, sagittal and axial FLAIR, coronal T2 fast sp in echo, axial gradient echo, axial diffusion and ADC through the brain. After the administration of contrast, axial and coronal T1 spin echo with fat saturation through the brain. COMPARISON: None. FINDINGS: Image quality: Motion artifact is noted. CSF spaces: Basal cisterns are patent. No extra-axial fluid collections. Ventricles are normal in size and shape. Brain: No midline shift. No intracranial bleeds or masses. No abnormal intracranial enhancement. There is cerebral volume loss for age. There is periventricular white matter chronic small vessel is chemic change. The brainstem appears normal. Diffusion-weighted images demonstrate no acute ischemi c insults. No chronic ischemic insults. Normal intravascular flow voids are present. Skull and face: Calvarial marrow is normal in signal. Orbits appear normal. A left-sided lens repl acement can be seen. Sinuses: Sinuses and mastoids appear clear. IMPRESSION: Intracranial study within normal limits for age, without a cause of the patient's presen ting history identified. Age-appropriate brain parenchymal volume loss and chronic small vessel ischemic change can be seen. No masses or abnormal enhancement can be seen. No findings of acute or subacute infarction are seen. No prior territorial infarction can be seen. Reviewed by: Gentry Kidd MD on 04/06/2024 4:50 PM AKSHAHEEN Approved by: Gentry Kidd MD on 04/06/2024 4:50 PM AKDT Station ID: [id number]
== END 2024-04-04 07:45 | disposition home or self-care (01) ==
LOC: DI 07:44
PROVIDERS: ATTEND Physician Assistant Medical
DX: R25.1 Tremor, unspecified (principal); R63.4 Abnormal weight loss; R14.0 Abdominal distension (gaseous)
CPT/HCPCS: 70553; 71260; 74177; A9575; Q9963; Q9967

== ENCOUNTER 2024-04-07 14:28 | Outpatient (CLI) | payer MEDICARE, OTHER ==
--- NOTE | 2024-04-07 16:44 | XRAY Report ---
PROCEDURE: Shoulder 2+V BL INDICATIONS: SHOULDER IMPINGEMENT SYNDROME TECHNIQUE: 3 views of each shoulder were acquired. COMPARISON: None. FINDINGS: Right: No fractures or dislocations. No suspicious bony lesions. Visualized ribs appear intact. Mi ld, clavicular and glenohumeral joint degeneration. Osteopenia. No suspicious soft tissue calcificati ons. The visualized lungs are within normal limits. Left: No fractures or dislocations. No suspicious bony lesions. Visualized ribs appear intact. Mild , clavicular and glenohumeral joint degeneration. Osteopenia. No suspicious soft tissue calcification s. The visualized lungs are within normal limits. IMPRESSION: 1. No acute bony abnormality. If clinical symptoms persist and there is clinical suspicion for tendon , ligament or labral injuries, consider MRI. 2. Mild degenerative joint disease. Reviewed by: Yamileth Victor MD on 04/07/2024 3:43 PM AKSHAHEEN Approved by: Yamileth Victor MD on 04/07/2024 3:43 PM AKDT Station ID: [id number]
== END 2024-04-07 14:29 | disposition home or self-care (01) ==
LOC: DI 14:28
PROVIDERS: ATTEND Physician Assistant Medical
DX: M19.011 Primary osteoarthritis, right shoulder (principal); M19.012 Primary osteoarthritis, left shoulder

== ENCOUNTER 2024-05-06 12:57 | Outpatient (CLI) | payer MEDICARE, OTHER ==
--- NOTE | 2024-05-07 18:42 | XRAY Report ---
Scapula 2V BL HISTORY: 78 years of age, BILATERAL SCAPULALGIA TECHNIQUE: Scapula 2V BL COMPARISON: None. FINDINGS/IMPRESSION: Left scapula: No displaced fracture of the left scapula. Right scapula: No displaced fracture of the right scapula. Degenerative changes of thoracic spine, partially visualized. Reviewed by: Eve Agrawal MD on 05/07/2024 6:41 PM PDT Approved by: Eve Agrawal MD on 05/07/2024 6:41 PM PDT Station ID: [id number]
== END 2024-05-06 12:58 | disposition home or self-care (01) ==
LOC: DI 12:57
PROVIDERS: ATTEND Physician Assistant Medical
DX: M47.814 Spondylosis without myelopathy or radiculopathy, thoracic region (principal)

== ENCOUNTER 2024-07-16 16:06 | Outpatient (CLI) | payer MEDICARE, OTHER ==
[2024-07-16 17:14] LABS: THYROID STIMULATING HORMONE 1.75 uIU/mL (0.34-5.60)
== END 2024-07-16 16:07 | disposition home or self-care (01) ==
LOC: LAB 16:06
PROVIDERS: ATTEND Student in an Organized Health Care Education/Training Program
DX: R41.89 Other symptoms and signs involving cognitive functions and awareness (principal)
CPT/HCPCS: 36415; 82607; 83921; 84443

== ENCOUNTER 2024-07-17 09:06 | Outpatient (CLI) | payer MEDICARE, OTHER ==
--- NOTE | 2024-07-17 09:42 | Sleep Patient Instructions ---
Sleep Center Visit Summary - Patient Visit Information Reason for Visit: Initial consult for evaluation of sleep disordered breathing and other sleep issues. - Patient Instructions Instructions Attached: Sleep Study Additional Instructions: You will be completing a sleep study, either an in-lab polysomnography (PSG) or home sleep study (HST). You will follow-up in the sleep care office after the sleep study is completed to hear the results and talk about therapy, if needed. You will be called by our office staff to schedule this appointment, but you may contact us with any questions. - Clinic Information Contact: [facility] [address] [place] [address] [email or web address] T: [phone]
--- NOTE | 2024-07-17 09:47 | SLEEP CARE CONSULTATION ---
Information from patient questionnaire entered by Judy Haynes. I have reviewed and concur with the information entered by Judy Haynes. This document represents the service I personally performed and the decisions made by me, Olimpia Kaba ARNP. History of Present Illness Service Date and Time: 07/17/2024 0906 Reason for Visit: New patient Chief Complaint: reports: Snoring, Observed pauses in breathing Date of Onset: SNORING ALL MY LIFE Usual bedtime: 6313-6733 Time it takes to fall asleep: 30-45MINS Snores at night: Yes Observed to quit breathing while asleep: Yes Sleeps alone due to snoring: No Number of times waking at night: 1-2 Reasons for waking at night: reports: Pain, Bathroom. denies: Choking, Gasping for air Toss, Turn, or Twitch while sleeping: Yes Recalls having dreams: Yes Usually gets out of bed at: VARIES DEPENDS ON SCHEDULE Feels refreshed in the morning: Yes (for the most part) Morning headache: No Sleepy or fatigued during the day: Yes Ever fallen asleep while driving: No Takes day naps: No Dreams during day naps: No Prior sleep studies: No Additional HPI information: I had the pleasure of seeing ABRIL RICHMOND today regarding the possibility of her having a sleep disorder. Her current complaints are snoring and observed pauses in breathing. She says her will see her holding her breath in bed and will wake her up. She is having balance issues and has had a fall last July 2023. Her doctor is concerned that her oxygen is going low during the night and may be contributing to the balance issues. She says she has snored since she was a child. Her dad snored. She says she is usually somewhat refreshed in the mornings, it just depends on how well she sleeps. She does not take naps. Her PCP sent her to neurology for her tremor and memory issues. They are trying to evaluate whether she has Parkinson's disease. She has been losing weight this last year for no apparent reason. - Parasomnia Symptoms Ever been unable to move upon waking from sleep: No Walks in sleep: No Talks in sleep: Yes ("mumble") Ever acted out dreams in sleep: No Ever felt weak in the knees when startled or emotional: No Bothered by creepy, crawly, restless sensations in legs: No Problems with memory or concentration: Yes (memory) Subjective Initial Edmond Sleepiness Scale score: 3 (07/17/24) Past Medical History Past Medical History: reports: Arthritis, Other (PRE-DIABETIC; has tremors and memory issues (seeing neurology)) Social History The patient's occupation is a RE. Patient is and lives in [place]. Have you smoked in the past 12 months: No Alcohol use: Yes Alcohol amount and frequency: HALF TEASPOON ON OCCASSIONAL Caffeine use: Yes Caffeine amount and frequency: 1-2 CUPS COFFEE EACH MORNING IF LUNCHTIME Family History Family history of sleep disordered breathing: Yes Family Hx Sleep Apnea: Father: Snoring, Sibling: Snoring Allergies and Home Medications Known drug allergies: Yes ( LISTED) Drug allergies reviewed: Yes Home medication list reviewed: Yes (as listed) Allergy and home medication list: Allergies amoxicillin Allergy (Verified 07/17/24 09:11) Hives bacitracin [From Neosporin ([id number])] Allergy (Verified 07/17/24 09:11) Hives neomycin [From Neosporin ([id number])] Allergy (Verified 07/17/24 09:11) Hives polymyxin B [From Neosporin ([id number])] Allergy (Verified 07/17/24 09:11) Hives Sulfa (Sulfonamide Antibiotics) Allergy (Verified 07/17/24 09:11) Rash Home Medications Medication Instructions Recorded Confirmed Last Taken Type Multivitamin [Multivitamins] See Rx Instructions .ROUTE .COMPLEX 09/16/19 07/17/24 09/14/19 History Omeprazole See Rx Instructions .ROUTE .COMPLEX 09/16/19 07/17/24 09/16/19 History Ascorbic Acid [Vitamin C] See Rx Instructions .ROUTE .COMPLEX 07/17/24 07/17/24 Unknown History Calcium Carbonate [Calcium] See Rx Instructions .ROUTE .COMPLEX 07/17/24 07/17/24 Unknown History Cholecalciferol (Vitamin D3) See Rx Instructions .ROUTE .COMPLEX 07/17/24 07/17/24 Unknown History [Vitamin D3] Cyclobenzaprine [Flexeril] See Rx Instructions .ROUTE .COMPLEX 07/17/24 07/17/24 Unknown History Gabapentin [Neurontin] See Rx Instructions .ROUTE .[facility] 07/17/24 07/17/24 Unknown History Green Superfood See Rx Instructions .ROUTE .[facility] 07/17/24 Unknown History Ibuprofen See Rx Instructions .ROUTE .[facility] 07/17/24 07/17/24 Unknown History Lactobacillus Combination No.4 See Rx Instructions .ROUTE .[facility] 07/17/24 07/17/24 Unknown History [Probiotic] Lactobacillus Combination No.4 See Rx Instructions .ROUTE .[facility] 07/17/24 07/17/24 Unknown History [Probiotic] Lidocaine [Asperflex] See Rx Instructions .ROUTE .[facility] 07/17/24 07/17/24 Unknown History Lysine [l-Lysine] See Rx Instructions .ROUTE .[facility] 07/17/24 07/17/24 Unknown History Magnesium Oxide [Magnesium] See Rx Instructions .ROUTE .[facility] 07/17/24 07/17/24 Unknown History [place]-3/Dha/Epa/Fish Oil [Fish Oil See Rx Instructions .ROUTE .[facility] 07/17/24 07/17/24 Unknown History 1,000 mg Softgel] Protein Powder See Rx Instructions .ROUTE .[facility] 07/17/24 Unknown History Ubidecarenone [Co Q-10] See Rx Instructions .ROUTE .[facility] 07/17/24 07/17/24 Unknown History Vitamin B Complex See Rx Instructions .ROUTE .[facility] 07/17/24 07/17/24 Unknown History Vitamin E See Rx Instructions .ROUTE .[facility] 07/17/24 07/17/24 Unknown History Vitamin K2 [Menauinone-7] See Rx Instructions .ROUTE .[facility] 07/17/24 07/17/24 Unknown History Zoledronic Acid 5Mg/100Ml Bag See Rx Instructions .ROUTE .[facility] 07/17/24 07/17/24 Unknown History [Reclast 5 mg/100 ml Bag] bisacodyL [Laxative] See Rx Instructions .ROUTE .[facility] 07/17/24 07/17/24 Unknown History estradioL [Estring] See Rx Instructions .ROUTE .[facility] 07/17/24 07/17/24 Unknown History traMADol [Ultram] See Rx Instructions .ROUTE .[facility] 07/17/24 07/17/24 Unknown History Review of Systems Weight loss over past 5 years: 20 Cardiovascular: denies: high blood pressure Gastrointestinal: denies: heartburn Neurological: reports: fainting or unconsciousness. denies: headaches Psychiatric: denies: anxiety, depression Ear/Nose/Throat: reports: dry mouth/throat, tonsillectomy Musculoskeletal: reports: joint pain, neck pain, back pain Physical Exam Vital signs obtained and entered by: JUDY Pierson MA Blood Pressure: 114/74 (LEFT ARM) Cuff size: SMALL ADLT Heart Rate: 83 O2 Saturation: 100 Height: 4 ft 11.5 in Weight: 83 lb 3.2 oz Body Mass Index: 16.5 BMI Classification: Underweight Neck circumference: 11.5 Mouth and throat: narrow oropharynx Soft palate: long Hard palate: normal Uvula: normal Uvula visualization: 0% Mallampati Class IV Tongue: enlarged in size with teeth sharma on lateral edges Tonsils: small Neck: normal w/o lymphadenopathy or thyromegaly Heart: regular rate and rhythm Lungs: clear bilaterally Impression and Plan 1. Suspected Obstructive Sleep Apnea-Hypopnea Syndrome, as suggested by a history of loud and irregular snoring, observed cessation of breath while asleep and cognitive impairment. Narrow oropharynx and obesity are common predisposing factors for obstructive sleep apnea-hypopnea syndrome. I recommend proceeding to polysomnography to confirm the diagnosis and to assess severity. If the patient has significant sleep disordered breathing, a manual CPAP titration study will also be performed to find the optimal treatment pressure. I informed the patient of what the sleep studies involve and after some discussion, obtained agreement to proceed. The pathophysiology of obstructive sleep apnea- hypopnea syndrome was discussed with the patient and health risks of cardiovascular and cerebrovascular disease if not treated. Risks of drowsy driving discussed in detail and patient advised to avoid long distance driving and to stick puller at the first sign of drowsiness. Patient agreed to plan. * Schedule polysomnography * Avoid long distance driving or driving when feeling sleepy. * Avoid alcohol, sedative and muscle relaxant around bedtime. * Review instructions provided by trained office staff on how to prepare for the sleep study. * Return for follow-up after sleep study completed. Plan: sleep study and followup Visit Type: In Office Time Spent with Patient (minutes): 32 Provider Statement: I spent 100% of the Face to Face Visit with the patient with greater than 50% spent counseling the patient and coordination of care.
[2024-07-17 09:54] VITALS: BP 114/74; O2SAT 100
== END 2024-07-17 09:07 | disposition home or self-care (01) ==
LOC: SC 09:06
PROVIDERS: ATTEND Nurse Practitioner Family
DX: R06.81 Apnea, not elsewhere classified (principal); R06.83 Snoring; R41.89 Other symptoms and signs involving cognitive functions and awareness; Z91.81 History of falling; R63.6 Underweight; Z68.1 Body mass index [BMI] 19.9 or less, adult
CPT/HCPCS: 99203; G0463; 99212